=== PATIENT | female | born 1985 | race Native Hawaiian/Other Pacific Islander ===

== ENCOUNTER 2016-12-22 01:43 | Emergency (ER) | payer BC ==
[2016-12-22] MEDS ORDERED: Sodium Chloride 0.9% 1,000 ML IV ONE (02:22)
--- NOTE | 2016-12-22 02:25 | C.PDOC ---
History Of Present Illness 31 yo female w/PMHx of anxiety, come in for evaluation of fever (T max 105F), bodyaches gradually worsen for past few days associated with sore throat, watery diarrhea #5-6 today. Pt admits, taking OTC medication without improvement in fever. Otherwise, pt denies recent travel or known sick contact. severe headache, neck pain, rash, drooling, dysphagia, dysphea, cough, CP, SOB, wheezing, abd. pain, vomiting, melena, hematoschezia, back pain, UTI sx. At present time, awake, anxious. Time Seen by Provider: 12/22/16 01:49 Chief Complaint (Nursing): Fever History Per: Patient Onset/Duration Of Symptoms: Gradual Current Symptoms Are (Timing): Still Present Past Medical History Reviewed: Historical Data, Nursing Documentation, Vital Signs Vital Signs: Last Vital Signs Temp 99.2 F 12/22/16 04:31 Pulse 74 12/22/16 04:31 Resp 20 12/22/16 04:31 BP 109/66 12/22/16 04:31 Pulse Ox 98 12/22/16 04:31 - Medical History PMH: Anxiety Surgical History: No Surg Hx Family History: States: No Known Family Hx - Social History Hx Alcohol Use: No Hx Substance Use: No - Immunization History Hx Tetanus Toxoid Vaccination: No Hx Influenza Vaccination: Yes Hx Pneumococcal Vaccination: No Review Of Systems Except As Marked, All Systems Reviewed And Found Negative. Constitutional: Positive for: Fever, Chills, Malaise ENT: Positive for: Nose Discharge, Nose Congestion, Throat Pain, Throat Swelling. Negative for: Ear Discharge Cardiovascular: Negative for: Chest Pain, Palpitations, Edema, Light Headedness Respiratory: Negative for: Cough, Shortness of Breath, Wheezing Gastrointestinal: Positive for: Diarrhea. Negative for: Nausea, Vomiting, Abdominal Pain, Melena, Hematochezia, Hematemesis Genitourinary: Negative for: Dysuria, Frequency Musculoskeletal: Negative for: Neck Pain, Back Pain Skin: Negative for: Rash Neurological: Negative for: Weakness, Numbness, Altered Mental Status, Dizziness Physical Exam - Physical Exam Appears: Well, Non-toxic, No Acute Distress Skin: Normal Color, Warm, Dry, No Rash Eye(s): bilateral: PERRL Ear(s): Bilateral: Normal Nose: Normal, No Discharge Oral Mucosa: Moist, No Drooling Tongue: Normal Appearing Lips: Normal Appearing Throat: Erythema (mild B/L), No Exudate, No Drooling Neck: Normal ROM, Trachea Midline, Supple Cardiovascular: Rhythm Regular Respiratory: Normal Breath Sounds, No Decreased Breath Sounds, No Accessory Muscle Use, No Stridor, No Wheezing Gastrointestinal/Abdominal: Normal Exam, Soft, No Tenderness, No Distention, No Guarding Back: No CVA Tenderness Extremity: Normal ROM, No Pedal Edema, No Deformity Neurological/Psych: Oriented x3, Normal Speech ED Course And Treatment - Laboratory Results Result Diagrams: 12/22/16 02:31 12/22/16 02:31 Lab Interpretation: No Acute Changes O2 Sat by Pulse Oximetry: 100 Pulse Ox Interpretation: Normal Progress Note: On re-eval, pt reports moderate improvement in symptomas. Fever improved,, hemodynamicaly stable. Non-toxic. AMbulatory in ED with stable gait. Tolerate Po well ion ED. PusleOx 100% RA. Neck: (-) meningeal sign. ENT : No acute findings. Lungs: CTA B/L, BS equal B/L. Abd: benign, (-) guarding, (-) rebound. Back: (-) CVA tenderness. Neurologicaly intact. Pt has clinical findings c/w viral illness. Pt advised. ref. to F/u with PMD in 1-2 days for re-eval. return to ED if any worsening or new changes. Disposition Counseled Patient/Family Regarding: Studies Performed, Diagnosis, Need For Followup - Disposition Referrals: [facility] [Outside] Disposition: HOME/ ROUTINE Disposition Time: 04:12 Condition: STABLE Additional Instructions: Encourage fluids Ibuprofen, TYlenol as need for fever Follow up with PM D in1 -2 days for re-evaluation. return to ED if any worsening or new changes. Prescriptions: Ibuprofen [Motrin] 1 tab PO TID PRN #20 tab PRN Reason: Pain Instructions: Viral Syndrome (ED) Forms: Work Excuse - Clinical Impression Clinical Impression: Influenza-like illness
[2016-12-22 02:28] VITALS: RESP 20
[2016-12-22] MEDS ORDERED: Sodium Chloride 0.9% 1,000 ML ONE (02:31)
[2016-12-22 02:37] LABS: BASO % 0.3 % (0.0-2.0); HEMATOCRIT 37.2 % (34.0-47.0); LYMPH # 0.6 K/uL (1.0-4.3); LYMPH % 4.4 % (20.0-40.0); MEAN CELL VOLUME 86.4 fL (81.0-99.0); MEAN CORPUSCULAR HEMOGLOBIN 28.7 pg (27.0-31.0); MEAN CORPUSCULAR HGB CONC 33.2 g/dL (33.0-37.0); MEAN PLATELET VOLUME 7.8 fL (7.2-11.7); MONO # 0.6 K/uL (0.0-0.8); MONO % 4.6 % (0.0-10.0); PLATELET COUNT 233 K/uL (130-400); RED CELL DISTRIBUTION WIDTH 12.7 % (11.5-14.5); WHITE BLOOD COUNT 12.6 K/uL (4.8-10.8)
[2016-12-22 02:42] LABS: CHLORIDE 104 mmol/L (98-107); SODIUM 136 mmol/L (132-148)
[2016-12-22 02:43] LABS: POTASSIUM 3.7 mmol/L (3.6-5.2)
[2016-12-22 02:45] LABS: ALB/GLOB RATIO 1.3 (1.0-2.1); ALKALINE PHOSPHATASE 54 U/L (38-126); ALT/SGPT 9 U/L (9-52); AST/SGOT 22 U/L (14-36); BILIRUBIN,TOTAL 0.8 mg/dL (0.2-1.3); BLOOD UREA NITROGEN 10 mg/dL (7-17); CALCIUM 8.6 mg/dl (8.6-10.4); CARBON DIOXIDE 17 mmol/L (22-30); GFR AFRICAN-AMERICAN > 60; GLUCOSE,RANDOM 111 mg/dL (65-105)
[2016-12-22 03:20] LABS: RBC URINE 1 /hpf (0-3); URINE BACTERIA RARE (<OCC); URINE BILIRUBIN NEGATIVE (NEGATIVE); URINE BLOOD NEGATIVE (NEGATIVE); URINE COLOR Straw (YELLOW); URINE GLUCOSE (UA) NORMAL (Normal); URINE KETONE 1+ mg/dL (NEGATIVE); URINE LEUKOCYTE ESTERASE NEG Leu/uL (Negative); URINE PROTEIN NEGATIVE (NEGATIVE); URINE UROBILINOGEN NORMAL mg/dL (0.2-1.0); WBC URINE 1 /hpf (0-5)
[2016-12-22 04:13] LABS: NEUTROPHIL 87 % (50-75); TOTAL CELLS COUNTED 100
[2016-12-22 04:31] VITALS: BP 109/66; PULSE 74; TEMP 99.2
[2016-12-24 20:02] VITALS: O2SAT 100
== END 2016-12-22 04:39 | disposition home or self-care (01) ==
LOC: C.ER 01:43
DX: J11.1 Influenza due to unidentified influenza virus with other respiratory manifestations (principal)
CPT/HCPCS: 80053; 81001; 84703; 85025; 87045; 87070; 87430; 87804; 96361; 96374; 96375; 99285; G0480; J1885; J2405; J7040